=== PATIENT | male | born 1975 | race Two or more races ===

== ENCOUNTER 2018-04-21 03:59 | Emergency (ER) | payer MEDICAID, OTHER ==
[~2018-04-21] VITALS: Ht 170.2 cm; Wt 161.5 kg
[2018-04-21] MEDS ORDERED: ASPIRIN 81 MG TAB.CHEW PO ONE (04:15)
[2018-04-21] MEDS ORDERED: NITROGLYCERIN OINT 1 GM PACKET TP ONE ×2 (04:15→04:22)
[2018-04-21] MEDS ORDERED: ASPIRIN 81 MG TAB.CHEW ONE (04:22)
[2018-04-21 04:31] LABS: BASOPHILS # (AUTO) 0.1 K/uL (0.0-8.0); BASOPHILS % (AUTO) 0.7 % (0.0-2.0); EOSINOPHILS # (AUTO) 0.2 K/uL (0.0-0.7); EOSINOPHILS % (AUTO) 3.4 % (0.0-7.0); HEMOGLOBIN 14.6 g/dL (12.5-16.3); LYMPHOCYTES # (AUTO) 2.5 K/uL (20.0-40.0); LYMPHOCYTES % (AUTO) 36.1 % (20.5-51.5); MEAN CORPUSCULAR HEMOGLOBIN 32.1 uug (23.8-33.4); MEAN CORPUSCULAR HGB CONC 36 g/dL (32.5-36.3); MEAN CORPUSCULAR VOLUME 89.8 fL (73.0-96.2); MONOCYTES # (AUTO) 0.6 K/uL (2.0-10.0); MONOCYTES % (AUTO) 8.1 % (0.0-11.0); NEUTROPHILS # (AUTO) 3.6 K/uL (1.8-8.9); NEUTROPHILS % (AUTO) 51.7 % (38.5-71.5); PLATELET COUNT (AUTO) 228 K/uL (152-348); RED BLOOD CELL COUNT(AUTO) 4.57 MIL/uL (4.06-5.63)
[2018-04-21 05:19] LABS: CREATININE 0.9 mg/dL (0.6-1.3); POTASSIUM 3.7 mmol/L (3.5-5.1)
[2018-04-21 05:32] LABS: BILIRUBIN,DIRECT 0.1 mg/dL (0.0-0.2); BILIRUBIN,TOTAL 0.4 mg/dL (0.2-1.0); TOTAL PROTEIN, SERUM 7.3 g/dL (6.4-8.2)
--- NOTE | 2018-04-21 07:33 | NUR ---
Pt. sleeping, no s/s of distress or pain noted.
--- NOTE | 2018-04-21 07:40 | NUR ---
PT.NOTED TO BE SINUS BRADICARDIA [id number] - WAS NOTIFIED.
--- NOTE | 2018-04-21 07:55 | NUR ---
CALL FOR ADM.TELE BED.PER .
--- NOTE | 2018-04-21 07:57 | NUR ---
Call placed to [facility], Dr. Blankenship will be paged.
--- NOTE | 2018-04-21 08:30 | NUR ---
Call placed to [facility], Dr. Fuentes speaking with ZEESHAN.
--- NOTE | 2018-04-21 08:32 | NUR ---
2nd call placed to [facility], Dr. Blankenship will be paged.
--- NOTE | 2018-04-21 08:33 | NUR ---
CALL BACK,AWAIRE ABOUT PT.ADMITING.SBAR REPORT GIVEN TO USHA/RN,PT.WILL BE ADMITED TO TELE#[id number].
--- NOTE | 2018-04-21 08:41 | NUR ---
Dr. Fuentes (CARDIOLOGY) at bedside.
--- NOTE | 2018-04-21 08:48 | NUR ---
PT.WAS SEEN BY MORGAN SERNA TO D/C PT.HOME, SPOKE WITH TORI OWENS.
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
[2018-04-21 08:51] VITALS: BP 143/62
[2018-04-21] MEDS ORDERED: ALPRAZOLAM 0.5 MG TABLET ONE (08:57)
[2018-04-21] MEDS ORDERED: ALPRAZOLAM 0.25 MG TABLET PO ONE (09:00)
== END 2018-04-21 09:11 | disposition home or self-care (01) ==
LOC: ER 04:05
DX: R07.89 Other chest pain (principal); R00.2 Palpitations; F41.9 Anxiety disorder, unspecified; R94.31 Abnormal electrocardiogram [ECG] [EKG]
CPT/HCPCS: 36415; 70030-TC; 71045; 85025; 85730; 93005; A4663